=== PATIENT | male | born 1995 | race Caucasian/White ===

== ENCOUNTER 2017-09-11 11:21 | Emergency (ER) | payer OTHER ==
[~2017-09-11] VITALS: Ht 182.9 cm; Wt 86.2 kg
[~2017-09-11 11:21] MED LIST: BACTRIM DS TAB1 EACH PO; HYDROCODONE-AP1 EAC6 PO; KEFLEX250 MG; NOHOMEMEDICATIONS; ZYVOX600 MG PO
[2017-09-11 12:26] LABS: ABSOLUTE EOSINOPHILS 0.1 thou/uL (0.0-0.7); ABSOLUTE LYMPHOCYTES 1.9 thou/uL (0.8-5.3); ABSOLUTE MONOCYTES 0.5 thou/uL (0.0-1.2); ABSOLUTE NEUTROPHILS 5.3 thou/uL (1.6-8.1); BASOPHILS 0.6 %; EOSINOPHILS 1.3 %; HEMATOCRIT 45.8 % (42.0-52.0); HEMOGLOBIN 15.4 gm/dL (14.0-18.0); LYMPHOCYTES 23.8 %; MCH 31.3 pg (26.0-34.0); MCHC 33.6 g/dL (28.0-37.0); MCV 93.2 fL (80.0-100.0); MONOCYTES 6.5 %; MPV 7.9 fl. (7.2-11.1); NUCLEATED RBCS 0 /100WBC; PLATELET COUNT* 210 thou/uL (150-400); POLYS 67.8 %; RBC 4.92 mil/uL (4.50-6.00); RDW-CV 12.8 % (10.5-14.5); WBC 7.9 thou/uL (4.0-11.0)
[2017-09-11 12:30] LABS: CALCIUM 8.2 mg/dL (8.5-10.1); CREATININE 0.9 mg/dL (0.6-1.3); POTASSIUM 3.9 mmol/L (3.5-5.1)
[2017-09-11 12:35] LABS: ALBUMIN 3.8 g/dL (3.4-5.0); TOTAL BILIRUBIN 0.3 mg/dL (<0.1-1.0); TOTAL PROTEIN 6.9 g/dL (6.4-8.2)
[2017-09-11] MEDS ORDERED: IBUPROFEN 800800 M1 PO (13:19)
[2017-09-11] MEDS ORDERED: TRAMADOL 50 MG50 MG PO (13:19)
[2017-09-11] MEDS ORDERED: BACTRIM DS TAB1 EACH PO (13:19)
[2017-09-11] MEDS ORDERED: KEFLEX500 M1 PO (13:19)
[2017-09-11 14:46] VITALS: BP 134/87
== END 2017-09-11 14:47 | disposition home or self-care (01) ==
LOC: M.ERS 11:21
PROVIDERS: Physician Assistant
DX: L03.113 Cellulitis of right upper limb (principal); L02.511 Cutaneous abscess of right hand; Z90.89 Acquired absence of other organs

== ENCOUNTER 2020-03-08 20:24 | Emergency (ER) | payer OTHER ==
[~2020-03-08] VITALS: Ht 182.9 cm; Wt 86.2 kg
[~2020-03-08 20:24] MED LIST changes: +IBUPROFEN 800800 M1 PO; +KEFLEX500 M1 PO; +TRAMADOL 50 MG50 MG PO
[2020-03-08 20:49] LABS: ABSOLUTE BASOPHILS 0.1 thou/uL (0.0-0.2); ABSOLUTE NEUTROPHILS 9.1 thou/uL (1.6-8.1); BASOPHILS 0.6 %; EOSINOPHILS 0.4 %; HEMATOCRIT 45.4 % (42.0-52.0); HEMOGLOBIN 15.5 gm/dL (14.0-18.0); LYMPHOCYTES 16.1 %; MCH 32.8 pg (26.0-34.0); MCHC 34.2 g/dL (28.0-37.0); MCV 95.9 fL (80.0-100.0); MONOCYTES 7.9 %; MPV 7.5 fl. (7.2-11.1); NUCLEATED RBCS 0 /100WBC; PLATELET COUNT* 197 thou/uL (150-400); RBC 4.74 mil/uL (4.50-6.00); WBC 12.1 thou/uL (4.0-11.0)
[2020-03-08 20:55] LABS: CALCIUM 8.1 mg/dL (8.5-10.1); CREATININE 1.1 mg/dL (0.6-1.3); POTASSIUM 3.7 mmol/L (3.5-5.1)
[2020-03-08] MEDS ORDERED: CLEOCIN HCL300 MG PO (21:34)
[2020-03-08 21:45] VITALS: BP 136/70
== END 2020-03-08 21:46 | disposition home or self-care (01) ==
LOC: M.ERS 20:24
PROVIDERS: Emergency Medicine
DX: M70.22 Olecranon bursitis, left elbow (principal); Y93.89 Activity, other specified; Z87.01 Personal history of pneumonia (recurrent)